=== PATIENT | male | born 1995 | race Caucasian/White ===

== ENCOUNTER 2016-12-19 21:04 | Emergency (ER) | payer SELFPAY ==
[~2016-12-19] VITALS: Ht 180.3 cm; Wt 79.5 kg
[~2016-12-19 21:04] MED LIST: ERYT.5%O RIGHT EYE
[2016-12-19 21:05] VITALS: BP 132/71; PULSE 115; RESP 20; TEMP 99.7; O2SAT 96
[2016-12-19] MEDS ORDERED: MAGICADU2 SWISH-SWAL (21:42)
[2016-12-19] MEDS ORDERED: PRED-503 PO (21:42)
[2016-12-19] MEDS ORDERED: CLIN150 PO (21:42)
[2016-12-19] MEDS ORDERED: CLINDAMYCIN 150 MG CAP PO ONE (21:45)
--- NOTE | 2016-12-19 21:46 | PD ---
HPI Chief Complaint: ENT Complaint Time Seen by Provider: 21:42 Travel History International Travel<30 days: No Contact w/Intl Traveler<30days: No Traveled to known affect area: No History of Present Illness HPI 21-year-old male presents emergency Department with complaints of sore throat for the last 1-2 days. He has had accompanying fever and chills, ear pain, difficulty swallowing and general malaise. He denies any shortness of breath or wheezing. No vomiting but he does state that he has some intermittent nausea. No abdominal pain. No dysuria or frequency. No rashes or lesions. PFSH Past Medical History Narrative Medical Left wrist dislocation Diminished Hearing: No Immunizations Current: Yes Tetanus Vaccination: < 5 Years Past Surgical History Surgical History: No Previous Surgery Other Surgery: Yes (REPAIR FOR FRACTURE RIGHT WRIST. ) Social History Alcohol Use: No Tobacco Use: No Substance Use: No Allergies-Medications (Allergen,Severity, Reaction): Coded Allergies: Penicillin (Verified Allergy, Severe, RASH, NAUSEA, 12/19/16) Sulfa (Verified Allergy, Severe, Rash, 12/19/16) Reported Meds & Prescriptions Reported Meds & Active Scripts Active Magic Mouthwash Adult Liq (Multi-Ingredient Mouthwash/Gargle) 120 Ml Susp 5 Ml SWISH-SWAL Q2HR Each 5mL contains: Nystatin 200,000units, Diphenhydramine 4.25mg, Viscous Lidocaine 10mg, Koehler syrup 0.8 mL Cleocin (Clindamycin HCl) 150 Mg Cap 300 Mg PO Q6H Deltasone (Prednisone) 20 Mg Tab 20 Mg PO TID Erythromyci1 3.5 Gm Oint 1 Dose RIGHT EYE Q8HR 7 Days Review of Systems Except as stated in HPI: all other systems reviewed are Neg General / Constitutional: Positive: Fever, Chills Eyes: No: Blurred Vision, Photophobia HENT: Positive: Sore Throat, No: Headaches, Lightheadedness Cardiovascular: No: Palpitations, Irregular Rhythm Respiratory: No: Cough, Shortness of Breath Gastrointestinal: Positive: Nausea, No: Vomiting Genitourinary: No: Urgency, Frequency Musculoskeletal: No: Myalgias, Arthralgias Skin: No Rash Physical Exam Narrative GENERAL: Well-developed, well-nourished in no acute distress. Nontoxic appearing. HEAD: Normocephalic, atraumatic. EYES: Pupils equal round and reactive. Extraocular motions intact. No scleral icterus. No injection or drainage. ENT: TMs clear without erythema. The external auditory canals clear. Nose: clear . Posterior pharynx is erythematous and moist. Positive tonsillar edema but no exudate. Uvula midline. Airway patent. NECK: Trachea midline.Supple, nontender, moves head freely. No central bony tenderness or spasm. Positive cervical and tonsillar adenopathy CARDIOVASCULAR: Regular rate and rhythm without murmurs, gallops, or rubs. RESPIRATORY: Clear to auscultation. Breath sounds equal bilaterally. No wheezes , rales, or rhonchi. GASTROINTESTINAL: Abdomen soft, non-tender, nondistended. No hepato-splenomegaly , or palpable masses. No guarding. EXTREMITIES: No clubbing, cyanosis, or edema. No joint tenderness, effusion, or edema noted. BACK: Nontender without deformity or crepitance. No flank tenderness. Data Data Last Documented VS Vital Signs Date Time Temp Pulse Resp B/P Pulse Ox O2 Delivery O2 Flow Rate FiO2 12/19/16 21:05 99.7 115 20 132/71 96 Room Air Orders Prednisone (Deltasone) (12/20/16 09:00) Clindamycin (Cleocin) (12/19/16 21:45) MDM Medical Decision Making Medical Screen Exam Complete: Yes Emergency Medical Condition: Yes Medical Record Reviewed: Yes Differential Diagnosis MDM: High Differential diagnoses: Strep throat, viral pharyngitis, mono, peritonsillar abscess, retropharyngeal abscess, Reg's angina Narrative Course Patient's given 80 mg of prednisone, 300 mg of clindamycin by mouth. This is acute pharyngitis Diagnosis Primary Impression: Acute pharyngitis Patient Instructions: General Instructions Additional Instructions: Rest. Force fluids. Saltwater gargles. Tylenol and Advil. Chloraseptic [place] Cepastat lozenge. Clindamycin, prednisone, and Magic mouthwash. Follow-up with a primary care doctor in 3-5 days. Return to the ER if any problems. Med/Other Pt SpecificInfo: Prescription(s) given Scripts Beolatmw-Rxgpkhblyisltkf-Jlpwdzrhw Liq (Magic Mouthwash Adult Liq)120 Ml Susp5 Ml SWISH-SWAL Q2HR #120 ML Each 5mL contains: Nystatin 200,000units, Diphenhydramine 4.25mg, Viscous Lidocaine 10mg, Koehler syrup 0.8 mL Prov:Marshall Arora MD 12/19/16 Clindamycin (Cleocin)150 Mg [id number] Mg PO Q6H #56 CAP Prov:Marshall Arora MD 12/19/16 Prednisone (Deltasone)20 Mg Tab20 Mg PO TID #15 TAB Prov:Marshall Arora MD 12/19/16 Disposition: 01 DISCHARGE HOME Condition: Stable Angel Huff Dec 19, 2016 21:46
[2016-12-19] MEDS ORDERED: predniSONE 20 MG TAB PO ONE (22:00)
[2016-12-20] MEDS ORDERED: predniSONE 20 MG TAB PO SCH (09:00)
== END 2016-12-19 21:58 | disposition home or self-care (01) ==
LOC: NEPB 21:04
DX: J02.9 Acute pharyngitis, unspecified (principal)
CPT/HCPCS: 99283; J7512